=== PATIENT | female | born 1970 | race Asian ===

== ENCOUNTER 2019-03-17 19:27 | Emergency (ER) | payer OTHER ==
[~2019-03-17] VITALS: Ht 157.5 cm; Wt 53.1 kg
[2019-03-17 19:28] VITALS: BP 131/79; Ht 157.5 cm; Wt 53.1 kg
== END 2019-03-17 20:45 | disposition home or self-care (01) ==
LOC: ED 19:27
DX: S61.233A Puncture wound without foreign body of left middle finger without damage to nail, initial encounter (principal); W46.1XXA Contact with contaminated hypodermic needle, initial encounter; Y93.89 Activity, other specified; Y92.89 Other specified places as the place of occurrence of the external cause; Y99.8 Other external cause status

== ENCOUNTER 2019-12-28 19:47 | Emergency (ER) | payer OTHER ==
[~2019-12-28] VITALS: Ht 157.5 cm; Wt 8.2 kg
[2019-12-28 19:49] VITALS: Ht 157.5 cm; Wt 8.2 kg
[2019-12-28 20:47] VITALS: BP 118/78
== END 2019-12-28 20:47 | disposition home or self-care (01) ==
LOC: ED 19:47
DX: S61.201A Unspecified open wound of left index finger without damage to nail, initial encounter (principal); X58.XXXA Exposure to other specified factors, initial encounter; Y93.89 Activity, other specified; Y92.89 Other specified places as the place of occurrence of the external cause; Y99.8 Other external cause status
CPT/HCPCS: 36415; 90715

== ENCOUNTER 2020-07-15 17:56 | Emergency (ER) | payer OTHER ==
[~2020-07-15] VITALS: Ht 152.4 cm; Wt 53.5 kg
[2020-07-15 18:01] VITALS: Ht 152.4 cm; Wt 53.5 kg
[2020-07-15 19:31] VITALS: BP 123/75
== END 2020-07-15 19:31 | disposition home or self-care (01) ==
LOC: ED 17:56
DX: S69.81XA Other specified injuries of right wrist, hand and finger(s), initial encounter (principal); X58.XXXA Exposure to other specified factors, initial encounter; Y93.89 Activity, other specified; Y92.89 Other specified places as the place of occurrence of the external cause; Y99.8 Other external cause status